=== PATIENT | female | born 1985 | race Caucasian/White ===

== ENCOUNTER 2017-01-11 14:45 | Emergency (ER) | payer SELFPAY ==
[~2017-01-11] VITALS: Ht 162.6 cm; Wt 84.0 kg
[~2017-01-11 14:45] MED LIST: CEPH500C3 PO; MULT-65 PO
[2017-01-11 14:58] VITALS: BP 103/71; PULSE 87; RESP 16; TEMP 98.6; O2SAT 100
[2017-01-11] MEDS ORDERED: IMIT25TA PO (16:15)
[2017-01-11] MEDS ORDERED: DEPRESSION (16:15)
[2017-01-11] MEDS ORDERED: MECLIZINE HCL 25 MG TAB PO ONE (16:30)
[2017-01-11] MEDS ORDERED: ONDANSETRON ODT 4 MG TAB PO ONE (16:30)
[2017-01-11] MEDS ORDERED: ZOFR4TAB PO (16:32)
[2017-01-11] MEDS ORDERED: MECL-62 PO (16:32)
--- NOTE | 2017-01-11 16:35 | PD ---
HPI Chief Complaint: Dizziness Time Seen by Provider: 16:15 Travel History International Travel<30 days: No Contact w/Intl Traveler<30days: No Traveled to known affect area: No History of Present Illness HPI She complains of feeling dizzy and lightheaded. There is a distinct room spinning sedation and is worse with movement or turning her head to either side. Denies fever or head injury. No muscle weakness or sensory loss or confusion or speech slurring. Symptoms severity is moderate. Symptoms wax and wane over 3 days. Symptoms are alleviated when she remains still. PFSH Past Medical History Depression: Yes Diminished Hearing: No Medical other: Yes (GILBERT SYNDROME) ?: Not LMP: on birthcontrol no menses : 3 Para: 2 Dilation and Curettage (D&C): Yes (X1) Past Surgical History Appendectomy: Yes Section: Yes (X2) Social History Alcohol Use: Yes (OCC) Tobacco Use: Yes (1/2 PPD) Substance Use: No Allergies-Medications (Allergen,Severity, Reaction): Coded Allergies: No Known Allergies (Unverified , 01/11/17) Reported Meds & Prescriptions Reported Meds & Active Scripts Active Meclizine (Meclizine HCl) 25 Mg Tab 25 Mg PO TID PRN Zofran (Ondansetron HCl) 4 Mg Tab 4 Mg PO Q6HR PRN Reported Imitrex (Sumatriptan Succinate) 25 Mg Tab 25 Mg PO ONCE PRN If a satisfactory response has not been obtained at 2 hours, a second dose may be administered [Depression] Review of Systems General / Constitutional: No: Fever Eyes: No: Visual changes HENT: Positive: Vertigo, No: Headaches Cardiovascular: No: Chest Pain or Discomfort Respiratory: No: Shortness of Breath Gastrointestinal: Positive: Nausea, No: Abdominal Pain Genitourinary: No: Dysuria Musculoskeletal: No: Pain Skin: No Rash Neurologic: Positive: Dizziness, No: Weakness Psychiatric: No: Depression Endocrine: No: Polydipsia Hematologic/Lymphatic: No: Easy Bruising Physical Exam Narrative GENERAL: Well-nourished, well-developed patient in no apparent distress. SKIN: Warm and dry. HEAD: Atraumatic. Normocephalic. EYES: Pupils equal and round. No scleral icterus. No injection or drainage. ENT: No nasal bleeding or discharge. Mucous membranes pink and moist. Throat and TMs normal NECK: Trachea midline. No JVD. No meningeal signs CARDIOVASCULAR: Regular rate and rhythm. No murmur appreciated. RESPIRATORY: No accessory muscle use. Clear to auscultation. Breath sounds equal bilaterally. GASTROINTESTINAL: Abdomen soft, non-tender, nondistended. Hepatic and splenic margins not palpable. MUSCULOSKELETAL: No obvious deformities. No clubbing. No cyanosis. No edema. NEUROLOGICAL: Awake and alert. No obvious cranial nerve deficits. Motor grossly within normal limits. Normal speech. PSYCHIATRIC: Appropriate mood and affect; insight and judgment normal. Data Data Last Documented VS Vital Signs Date Time Temp Pulse Resp B/P Pulse Ox O2 Delivery O2 Flow Rate FiO2 01/11/17 14:58 98.6 87 16 103/71 100 Orders Meclizine (Antivert) (01/11/17 16:30) Ondansetron Odt (Zofran Odt) (01/11/17 16:30) [facility] Medical Decision Making Medical Screen Exam Complete: Yes Emergency Medical Condition: Yes Medical Record Reviewed: Yes Differential Diagnosis Positional vertigo, labyrinthitis, vasovagal episode Narrative Course I have reviewed the patient's electronic medical record. This patient's vital signs and exam are normal. She is neurologically intact. Presentation seems most consistent with benign positional vertigo No indication for emergent imaging I gave her dose of meclizine and Zofran here with prescriptions for the same. Recommend primary care follow-up but return if she worsens Diagnosis Primary Impression: Positional vertigo Qualified Code: H81.10 - Positional vertigo, unspecified laterality Additional Instructions: The patient was advised to follow up with their physician and return if they worsen. The patient was warned about potential sedation for the medications they will receive on prescription. Med/Other Pt SpecificInfo: Prescription(s) given Scripts Meclizine 25 Mg Tab25 Mg PO TID PRN (VERTIGO) #20 TAB Ref 0 Prov:Flex Waterman MD 01/11/17 Ondansetron (Zofran)4 Mg Tab4 Mg PO Q6HR PRN (NAUSEA OR VOMITING) #15 TAB Ref 0 Prov:Flex Waterman MD 01/11/17 Disposition: DISCHARGE HOME Condition: Stable Flex Waterman MD Jan 11, 2017 16:35
[2017-01-11 16:59] VITALS: BP 112/62
== END 2017-01-11 17:08 | disposition home or self-care (01) ==
LOC: PHED 14:45
DX: H81.10 Benign paroxysmal vertigo, unspecified ear (principal); F17.200 Nicotine dependence, unspecified, uncomplicated; Z86.59 Personal history of other mental and behavioral disorders; Z87.898 Personal history of other specified conditions
CPT/HCPCS: 99283

== ENCOUNTER 2017-03-10 20:47 | Emergency (ER) | payer MEDICAID ==
[~2017-03-10] VITALS: Ht 162.6 cm; Wt 83.0 kg
[~2017-03-10 20:47] MED LIST changes: -CEPH500C3 PO; +DEPRESSION; +IMIT25TA PO; +MECL-62 PO; -MULT-65 PO; +ZOFR4TAB PO
[2017-03-10 20:49] VITALS: BP 117/76; PULSE 73; RESP 18; TEMP 98.5; O2SAT 98
[2017-03-10] MEDS ORDERED: luvox (21:55)
[2017-03-10] MEDS ORDERED: RESP: ALBUTEROL 2.5 MG/IPRATROPIUM 0.5 MG NEB (SCH) INH ONE (22:30)
[2017-03-10 22:42] VITALS: O2SAT 97
--- NOTE | 2017-03-10 23:01 | RADRPT ---
EXAM DATE/TIME: 03/10/2017 22:51 [facility] COMPARISON: CHEST SINGLE AP, August 28, 2015, 20:18. INDICATIONS : Short of breath. MEDICAL HISTORY : None. SURGICAL HISTORY : None. ENCOUNTER: Initial ACUITY: 1 day PAIN SCORE: 3/10 LOCATION: chest FINDINGS: A single view of the chest demonstrates the lungs to be symmetrically aerated without evidence of mas s, infiltrate or effusion. The cardiomediastinal contours are unremarkable. Osseous structures are intact. CONCLUSION: No evidence of acute cardiopulmonary disease. Gerardo Forbes MD on March 10, 2017 at 22:59 Board Certified Radiologist. This report was verified electronically.
[2017-03-10 23:31] LABS: AUTOMATED NEUTROPHIL # 5.7 TH/MM3 (1.8-7.7); BASOPHIL # 0.1 TH/MM3 (0-0.2); BASOPHIL % 0.6 % (0.0-2.0); EOSINOPHIL # 0.2 TH/MM3 (0-0.4); EOSINOPHIL % 2.1 % (0.0-4.0); HEMATOCRIT 40.2 % (35.0-46.0); HEMO FLAGS DIFF FINAL; LYMPH % 27.5 % (9.0-44.0); LYMPHOCYTE # 2.6 TH/MM3 (1.0-4.8); MEAN CELL VOLUME 87.1 FL (80.0-100.0); MEAN CORPUSCULAR HEMOGLOBIN 30.2 PG (27.0-34.0); MEAN CORPUSCULAR HGB CONC 34.7 % (32.0-36.0); MONO % 8.6 % (0.0-8.0); NEUT % 61.2 % (16.0-70.0); PLATELET COUNT 185 TH/MM3 (150-450); RED BLOOD COUNT 4.62 MIL/MM3 (4.00-5.30); WHITE BLOOD COUNT 9.3 TH/MM3 (4.0-11.0)
[2017-03-10 23:43] LABS: APTT (PATIENT) 27.3 SEC (24.3-30.1); PROTHROMBIN TIME - PATIENT 10.8 SEC (9.8-11.6)
--- NOTE | 2017-03-11 | PD ---
HPI Chief Complaint: Respiratory Symptoms Time Seen by Provider: 22:24 Travel History International Travel<30 days: No Contact w/Intl Traveler<30days: No Traveled to known affect area: No History of Present Illness HPI 32-year-old female complains of epigastric substernal chest pain and shortness of breath and body ache. Patient states the symptoms started this evening. Patient states that the chest pain is sharp pain. Patient denies any pain radiation. Patient states that she has mild dry cough. Patient states that she has nausea also with the pain. Patient states the chest wall pain is worse with deep breathing. Patient denies any vomiting or diarrhea. Patient denies any abdominal pain. Patient denies any dysuria or frequency. Patient denies any vaginal discharge or bleeding. PFSH Past Medical History Depression: Yes Diminished Hearing: No ?: Unknown LMP: may 2016 : 3 Para: 2 Dilation and Curettage (D&C): Yes (X1) Past Surgical History Appendectomy: Yes Section: Yes (x2) Social History Alcohol Use: No Tobacco Use: Yes Substance Use: No Allergies-Medications (Allergen,Severity, Reaction): Coded Allergies: No Known Allergies (Unverified , 03/10/17) Reported Meds & Prescriptions Reported Meds & Active Scripts Active Meclizine (Meclizine HCl) 25 Mg Tab 25 Mg PO TID PRN Zofran (Ondansetron HCl) 4 Mg Tab 4 Mg PO Q6HR PRN Reported [luvox] Imitrex (Sumatriptan Succinate) 25 Mg Tab 25 Mg PO ONCE PRN If a satisfactory response has not been obtained at 2 hours, a second dose may be administered [Depression] Review of Systems General / Constitutional: No: Fever Eyes: No: Visual changes HENT: No: Headaches Cardiovascular: Positive: Chest Pain or Discomfort Respiratory: Positive: Cough, Shortness of Breath Gastrointestinal: Positive: Nausea, No: Abdominal Pain Genitourinary: No: Dysuria Musculoskeletal: No: Pain Skin: No Rash Neurologic: No: Weakness Psychiatric: No: Depression Endocrine: No: Polydipsia Hematologic/Lymphatic: No: Easy Bruising Physical Exam Narrative GENERAL: Well-nourished, well-developed patient. SKIN: Focused skin assessment warm/dry. HEAD: Normocephalic. EYES: No scleral icterus. No injection or drainage. NECK: Supple, trachea midline. No JVD or lymphadenopathy. CARDIOVASCULAR: Regular rate and rhythm without murmurs, gallops, or rubs. RESPIRATORY: Breath sounds equal bilaterally. No accessory muscle use. Patient has mild expiratory wheezes bilaterally. No rhonchi. GASTROINTESTINAL: Abdomen soft, nondistended. Patient has mild tenderness on palpation epigastric area. No rebound tenderness. No mass. MUSCULOSKELETAL: No cyanosis, or edema. BACK: Nontender without obvious deformity. No CVA tenderness. Neurologic exam normal. Data Data Last Documented VS Vital Signs Date Time Temp Pulse Resp B/P Pulse Ox O2 Delivery O2 Flow Rate FiO2 03/10/17 22:42 97 03/10/17 22:41 Room Air 03/10/17 20:49 98.5 73 18 117/76 Orders Complete Blood Count With Diff (03/10/17 22:30) Comprehensive Metabolic Panel (03/10/17 22:30) Act Partial Throm Time (Ptt) (03/10/17 22:30) Prothrombin Time / Inr (Pt) (03/10/17 22:30) Ckmb (Isoenzyme) Profile (03/10/17 22:30) Troponin I (03/10/17 22:30) Urinalysis - C+S If Indicated (03/10/17 22:30) Influenzae A/B Antigen (03/10/17 22:30) Iv Access Insert/Monitor (03/10/17 22:30) Ecg Monitoring (03/10/17 22:30) Oximetry (03/10/17 22:30) Oxygen Administration (03/10/17 22:30) Chest, Single Ap (03/10/17 22:30) Albuterol-Ipratropium Neb (Duoneb Neb) (03/10/17 22:30) Labs Laboratory Tests Test 03/10/17 03/10/17 22:15 23:53 White Blood Count 9.3 TH/MM3 Red Blood Count 4.62 MIL/MM3 Hemoglobin 14.0 GM/DL Hematocrit 40.2 % Mean Corpuscular Volume 87.1 FL Mean Corpuscular Hemoglobin 30.2 PG Mean Corpuscular Hemoglobin 34.7 % Concent Red Cell Distribution Width 13.0 % Platelet Count 185 TH/MM3 Mean Platelet Volume 11.1 FL Neutrophils (%) (Auto) 61.2 % Lymphocytes (%) (Auto) 27.5 % Monocytes (%) (Auto) 8.6 % Eosinophils (%) (Auto) 2.1 % Basophils (%) (Auto) 0.6 % Neutrophils # (Auto) 5.7 TH/MM3 Lymphocytes # (Auto) 2.6 TH/MM3 Monocytes # (Auto) 0.8 TH/MM3 Eosinophils # (Auto) 0.2 TH/MM3 Basophils # (Auto) 0.1 TH/MM3 CBC Comment DIFF FINAL Differential Comment Prothrombin Time 10.8 SEC Prothromb Time International 1.0 RATIO Ratio Activated Partial 27.3 SEC Thromboplast Time Sodium Level 140 MEQ/L Potassium Level 3.7 MEQ/L Chloride Level 106 MEQ/L Carbon Dioxide Level 25.1 MEQ/L Anion Gap 9 MEQ/L Blood Urea Nitrogen 15 MG/DL Creatinine 0.89 MG/DL Estimat Glomerular Filtration 74 ML/MIN Rate Random Glucose 78 MG/DL Calcium Level 9.0 MG/DL Total Bilirubin 0.5 MG/DL Aspartate Amino Transf 15 U/L (AST/SGOT) Alanine Aminotransferase 22 U/L (ALT/SGPT) Alkaline Phosphatase 72 U/L Total Creatine Kinase 95 U/L Troponin I LESS THAN 0.02 NG/ML Total Protein 7.7 GM/DL Albumin 4.2 GM/DL Urine Color COLORLESS Urine Turbidity CLEAR Urine pH 6.5 Urine Specific [place] 1.004 Urine Protein NEG mg/dL Urine Glucose (UA) NEG mg/dL Urine Ketones NEG mg/dL Urine Occult Blood NEG Urine Nitrite NEG Urine Bilirubin NEG Urine Urobilinogen LESS THAN 2.0 MG/DL Urine Leukocyte Esterase NEG Urine RBC LESS THAN 1 /hpf Urine WBC LESS THAN 1 /hpf Urine Squamous Epithelial 2 /hpf Cells Urine Renal Epithelial Cells <1 /hpf Microscopic Urinalysis Comment CULT NOT INDICATED MDM Medical Decision Making Medical Screen Exam Complete: Yes Emergency Medical Condition: Yes Interpretation(s) Last Impressions Chest X-Ray 03/10/170 Signed Impressions: Service Date/Time: Friday, March 10, 2017 22:51 - CONCLUSION: No evidence of acute cardiopulmonary disease. Gerardo Forbes MD 12 AM. CBC within normal limit. CMP within normal limit. Cardiac enzymes are normal. UA is negative. Influenza AB antigen negative Differential Diagnosis Differential diagnosis including URI, bronchitis, pneumonia, angina, TN, PE, pneumothorax, gastritis, PUD, pancreatitis, colitis, UTI, pyelonephritis. Narrative Course 32-year-old female with chest pain or shortness of breath and substernal and epigastric pain. Patient also complained body ache and nausea. Albuterol with Atrovent unit dose treatment 2. Solu-Medrol 125 mg IV. Protonix 40 mg IV. Diagnosis Primary Impression: Atypical chest pain Additional Impressions: Bronchitis Reactive airway disease Qualified Code: J45.20 - Reactive airway disease, mild intermittent, uncomplicated Patient Instructions: General Instructions Additional Instructions: Take medications as directed. Use inhaler as directed. Follow-up with personal physician. Return if worse. Med/Other Pt SpecificInfo: Prescription(s) given Scripts Ranitidine (Zantac)300 Mg [id number] Mg PO DAILY #10 TAB Ref 0 Prov:Ady Bowers MD 03/11/17 Prednisone 20 Mg Tab20 Mg PO BID #10 TAB Prov:Ady Bowers MD 03/11/17 Azithromycin (Zithromax Z-Zander)250 Mg [id number] Mg PO DIRECTED #1 DSPK 500 MG (2 tabs) day 1, then 1 tab days 2-5. Prov:Ady Bowers MD 03/11/17 Disposition: 01 DISCHARGE HOME Condition: Stable Ady Bowers MD Mar 11, 2017 00:00
[2017-03-11 00:04] LABS: ANION GAP 9 MEQ/L (5-15); AST (GOT) 15 U/L (15-37); BICARBONATE 25.1 MEQ/L (21.0-32.0); BLOOD UREA NITROGEN 15 MG/DL (7-18); CHLORIDE 106 MEQ/L (98-107); GLOMERULAR FILTRATION RATE 74 ML/MIN (>89); POTASSIUM 3.7 MEQ/L (3.5-5.1); SODIUM (NA) 140 MEQ/L (136-145)
[2017-03-11 00:09] LABS: ALKALINE PHOSPHATASE 72 U/L (45-117); ALT (GPT) 22 U/L (10-53); TOTAL BILIRUBIN ADULT 0.5 MG/DL (0.2-1.0)
[2017-03-11 00:09] LABS: BLOOD, URINE NEG (NEG); GLUCOSE,URINE NEG (NEG); KETONE, URINE NEG (NEG); NITRITE,URINE NEG (NEG); PH, URINE 6.5 (5.0-8.5); RENAL EPITHELIAL CELLS <1 /hpf; SQUAMOUS EPITHELIAL CELL URINE 2 /hpf (0-5); URINE COLOR COLORLESS (YELLW/STRAW)
[2017-03-11 00:10] LABS: CREATINE KINASE 95 U/L (26-192)
[2017-03-11 00:10] LABS: COMMENT (UR) CULT NOT INDICATED; CULTURE IF INDICATED CULT NOT INDICATED
[2017-03-11] MEDS ORDERED: ZANT300T PO (01:29)
[2017-03-11] MEDS ORDERED: PRED20 PO (01:29)
[2017-03-11] MEDS ORDERED: ZITHTAB PO (01:29)
[2017-03-11] MEDS ORDERED: PANTOPRAZOLE SODIUM 40 MG VIAL IV PUSH ONE (01:30)
[2017-03-11] MEDS ORDERED: methylPREDNISolone SOD SUCC 125 MG/2 ML VIAL IV PUSH ONE (01:30)
[2017-03-11 02:00] VITALS: BP 120/62; PULSE 86; RESP 22; O2SAT 98
--- NOTE | 2017-03-12 07:03 | EKG ---
Date Performed: 03/10/2017 Time Performed: 22:23:34 PTAGE: 32 years EKG: SINUS BRADYCARDIA BORDERLINE ECG Compared to PREVIOUS TRACING , the sinus rate has slowed. PREVIOUS TRACIN08/28/2015 16.27 DOCTOR: Ronn Boss Interpretating Date/Time 03/12/2017 07:01:59
== END 2017-03-11 02:13 | disposition home or self-care (01) ==
LOC: NEPD 20:47
DX: R07.89 Other chest pain (principal); J45.20 Mild intermittent asthma, uncomplicated; Z72.0 Tobacco use
CPT/HCPCS: 71010; 80053; 81001; 82550; 84484; 85025; 85610; 85730; 87804; 93005; 94664; 96374; 96375; 99285; C9113; J2930

== ENCOUNTER 2018-01-10 22:25 | Emergency (ER) | payer MEDICAID, OTHER ==
[~2018-01-10] VITALS: Ht 165.1 cm; Wt 83.0 kg
[~2018-01-10 22:25] MED LIST changes: +PRED20 PO; +ZANT300T PO; +ZITHTAB PO; +luvox
[2018-01-10 22:29] VITALS: BP 124/79; PULSE 72; RESP 16; TEMP 97.9; O2SAT 98
[2018-01-10 22:46] VITALS: BP 118/67; PULSE 63; RESP 16; TEMP 98; O2SAT 98
[2018-01-10] MEDS ORDERED: ONDANSETRON HCL 4 MG/2 ML VIAL IV ONE (23:15)
[2018-01-10] MEDS ORDERED: SODIUM CHLOR 0.9% 1000 ML INJ 1,000 ML IV ONE (23:15)
[2018-01-10 23:24] VITALS: RESP 20
--- NOTE | 2018-01-10 23:35 | PD ---
HPI Chief Complaint: Abdominal Pain Time Seen by Provider: 23:07 Travel History International Travel<30 days: No Contact w/Intl Traveler<30days: No Traveled to known affect area: No History of Present Illness HPI The patient is a 33 year old female who presents to the [facility] emergency department with a history of abdominal pain in the right upper abdomen that radiates into her back. The pain is coming and going. It is sharp in character. She last ate at 7 PM. She had Tacos for dinner. She denies any indigestion or food intolerances. She has had urinary frequency for the last week. She has had N/V 3-4 times since the onset. She denies having any dysuria or urinary urgency. She reports that she is currently trying to get . She recently had her Nexplanon removed. On review of systems otherwise, she denies having any recent fevers, cough or congestion, neck pain, chest pain, shortness of breath, diarrhea, or neurologic symptoms. Her last bowel movement was earlier today. She denies having any blood in her stool or black or tarry stools LMP: 1 and 1/2 weeks ago. [facility] Past Medical History Narrative Medical The patient's past medical history is significant for Gilbert's, depression. Depression: Yes Diminished Hearing: No Immunizations Current: Yes Tetanus Vaccination: Unknown Influenza Vaccination: No ?: Not LMP: 01/01/18 : 3 Para: 2 Dilation and Curettage (D&C): Yes (X1) Past Surgical History Narrative Surgical The patient's past surgical history is significant for x2, d and c, appendectomy. Appendectomy: Yes Section: Yes (x2) Social History Alcohol Use: No Tobacco Use: No (quit smoking 2 months ago.) Substance Use: No Allergies-Medications (Allergen,Severity, Reaction): Coded Allergies: No Known Allergies (Unverified Adverse Reaction, Unknown, 01/10/18) Reported Meds & Prescriptions Reported Meds & Active Scripts Active Bentyl (Dicyclomine HCl) 10 Mg Cap 10 Mg PO TID PRN Review of Systems Except as stated in HPI: all other systems reviewed are Neg General / Constitutional: No: Fever Eyes: No: Visual changes HENT: No: Headaches Cardiovascular: No: Chest Pain or Discomfort Respiratory: No: Shortness of Breath Gastrointestinal: Positive: Nausea, Vomiting, Abdominal Pain, No: Diarrhea Genitourinary: No: Dysuria Musculoskeletal: No: Pain Skin: No Rash Neurologic: No: Weakness Psychiatric: No: Depression Endocrine: No: Polydipsia Hematologic/Lymphatic: No: Easy Bruising Physical Exam Narrative General: The patient is a well-developed well-nourished female in no acute distress. Head and Neck exam: Head is normocephalic atraumatic. Eyes: EOMI, pupils are equal round and reactive to light. Nose: Midline septum with pink mucous membranes Mouth: Dentition unremarkable. Moist mucus membranes. Posterior oropharynx is not erythematous. No tonsillar hypertrophy. Uvula midline. Airway patent. Neck: No palpable lymphadenopathy. No nuchal rigidity. No thyromegaly. Cardiovascular: Regular rate and rhythm without murmurs, gallops, or rubs. Lungs: Clear to auscultation bilaterally. No wheezes, rhonchi, or rales. Abdomen: Soft, with reported tenderness on palpation along bilateral lower quadrants of the abdomen and the right upper quadrant of the abdomen. Normal bowel sounds are audible. No guarding, rebound, or rigidity. Negative Stone's sign. Extremities: No clubbing, cyanosis, or edema. 2+ pulses in all 4 extremities. No calf tenderness on palpation. Back: No spinous process tenderness to palpation. No costovertebral angle tenderness to palpation. Neurologic Exam: Grossly nonfocal. Skin Exam: No rash noted. Intact skin that is warm and dry. Data Data Last Documented VS Vital Signs Date Time Temp Pulse Resp B/P (MAP) Pulse Ox O2 Delivery O2 Flow Rate FiO2 01/11/18 02:11 01/11/18 00:57 20 01/10/18 22:46 98.0 63 98 Room Air Orders Orders Complete Blood Count With Diff (01/10/18 23:10) Comprehensive Metabolic Panel (01/10/18 23:10) C-Reactive Protein (Crp) (01/10/18 23:10) Lipase (01/10/18 23:10) Urinalysis - C+S If Indicated (01/10/18 23:10) Iv Access Insert/Monitor (01/10/18 23:10) Ecg Monitoring (01/10/18 23:10) Oximetry (01/10/18 23:10) Ed Urine Pregnancytest Poc (01/10/18 23:10) Sodium Chlor 0.9% 1000 Ml Inj (Ns 1000 M (01/10/18 23:15) Ondansetron Inj (Zofran Inj) (01/10/18 23:15) Ct Abd/Pel W Iv Contrast(Rout) (01/11/18 00:07) Ketorolac Inj (Toradol Inj) (01/11/18 00:15) Iohexol 350 Inj (Omnipaque 350 Inj) (01/11/18 00:33) Labs Laboratory Tests Test 01/10/18 23:20 01/10/18 23:30 White Blood Count 8.7 TH/MM3 Red Blood Count 4.95 MIL/MM3 Hemoglobin 14.8 GM/DL Hematocrit 42.4 % Mean Corpuscular Volume 85.6 FL Mean Corpuscular Hemoglobin 30.0 PG Mean Corpuscular Hemoglobin Concent 35.0 % Red Cell Distribution Width 12.9 % Platelet Count 188 TH/MM3 Mean Platelet Volume 10.5 FL Neutrophils (%) (Auto) 48.1 % Lymphocytes (%) (Auto) 42.2 % Monocytes (%) (Auto) 6.8 % Eosinophils (%) (Auto) 2.1 % Basophils (%) (Auto) 0.8 % Neutrophils # (Auto) 4.2 TH/MM3 Lymphocytes # (Auto) 3.7 TH/MM3 Monocytes # (Auto) 0.6 TH/MM3 Eosinophils # (Auto) 0.2 TH/MM3 Basophils # (Auto) 0.1 TH/MM3 CBC Comment DIFF FINAL Differential Comment Blood Urea Nitrogen 14 MG/DL Creatinine 0.91 MG/DL Random Glucose 94 MG/DL Total Protein 7.1 GM/DL Albumin 3.7 GM/DL Calcium Level 9.3 MG/DL Alkaline Phosphatase 74 U/L Aspartate Amino Transf (AST/SGOT) 19 U/L Alanine Aminotransferase (ALT/SGPT) 38 U/L Total Bilirubin 0.4 MG/DL Sodium Level 140 MEQ/L Potassium Level 3.6 MEQ/L Chloride Level 107 MEQ/L Carbon Dioxide Level 24.6 MEQ/L Anion Gap 8 MEQ/L Estimat Glomerular Filtration Rate 71 ML/MIN C-Reactive Protein LESS THAN 0.29 MG/DL Lipase 155 U/L Urine Color LIGHT-YELLOW Urine Turbidity HAZY Urine pH 6.5 Urine Specific [place] 1.007 Urine Protein NEG mg/dL Urine Glucose (UA) NEG mg/dL Urine Ketones NEG mg/dL Urine Occult Blood NEG Urine Nitrite NEG Urine Bilirubin NEG Urine Urobilinogen LESS THAN 2.0 MG/DL Urine Leukocyte Esterase NEG Urine RBC 1 /hpf Urine WBC 1 /hpf Urine Squamous Epithelial Cells 7 /hpf Urine Amorphous Sediment RARE Urine Bacteria RARE /hpf Urine Mucus FEW /lpf Microscopic Urinalysis Comment CULT NOT INDICATED MDM Medical Decision Making Medical Screen Exam Complete: Yes Emergency Medical Condition: Yes Medical Record Reviewed: Yes Differential Diagnosis Biliary colic, versus acute cholecystitis, versus colitis, versus pancreatitis, versus viral syndrome, versus gastroparesis Narrative Course During the course of the patient's emergency department visit, the patient's history, examination, and differential diagnosis were reviewed with the patient. The patient was placed on a radiographer cardiac catheterization with oximetry and frequent blood pressure monitoring. The patient had IV access obtained and blood work sent for analysis. The patient was initially provided normal saline 1 L IV fluid bolus, Zofran 4 mg IV, Toradol 15 mg IV The patient's laboratory studies were reviewed and remarkable for A CBC that is within normal limits, CMP is remarkable for GFR of 71, C-reactive protein less than 0.29, lipase 155, urinalysis reveals hazy urine otherwise unremarkable Radiology studies were reviewed and remarkable for a CT scan of the abdomen and pelvis that shows no acute disease The patient's pain was improving. The patient will be discharged home with a prescription for Bentyl. The patient is resting comfortably and feels better, is alert and in no distress. The patient's results and examination findings were discussed with the patient. The repeat examination is unremarkable and benign. The history, exam, diagnostic testing, and current condition do not suggest any significant pathology to warrant further testing, continued ED treatment, admission, or surgical evaluation at this point. The vital signs have been stable. The patient does not have uncontrollable pain, intractable vomiting, or other significant symptoms. The patient's condition is stable and appropriate for discharge. The patient will pursue further outpatient evaluation with a primary care physician or other designated or consulting physician as indicated in the discharge instructions. The patient expressed understanding and was agreeable with this plan. Diagnosis Primary Impression: Abdominal pain Qualified Codes: R10.84 - Generalized abdominal pain Referrals: Primary Care Physician 2 days Patient Instructions: Abdominal Pain (ED), General Instructions Med/Other Pt SpecificInfo: Prescription(s) given Scripts Dicyclomine (Bentyl) 10 Mg Cap 10 MG PO TID Y for PAIN GREATER THAN 5, #10 CAP 0 Refills Prov: Jeannie Lira MD 01/11/18 Disposition: 01 DISCHARGE HOME Condition: Stable Jeannie Lira MD Jan 10, 2018 23:35
[2018-01-10 23:42] LABS: AUTOMATED NEUTROPHIL # 4.2 TH/MM3 (1.8-7.7); BASOPHIL # 0.1 TH/MM3 (0-0.2); BASOPHIL % 0.8 % (0.0-2.0); EOSINOPHIL # 0.2 TH/MM3 (0-0.4); EOSINOPHIL % 2.1 % (0.0-4.0); HEMATOCRIT 42.4 % (35.0-46.0); HEMOGLOBIN 14.8 GM/DL (11.6-15.3); LYMPH % 42.2 % (9.0-44.0); LYMPHOCYTE # 3.7 TH/MM3 (1.0-4.8); MEAN CELL VOLUME 85.6 FL (80.0-100.0); MEAN PLATELET VOLUME 10.5 FL (7.0-11.0); MONO % 6.8 % (0.0-8.0); MONOCYTE # 0.6 TH/MM3 (0-0.9); NEUT % 48.1 % (16.0-70.0); PLATELET COUNT 188 TH/MM3 (150-450); RED BLOOD COUNT 4.95 MIL/MM3 (4.00-5.30); RED CELL DISTRIBUTION WIDTH 12.9 % (11.6-17.2); WHITE BLOOD COUNT 8.7 TH/MM3 (4.0-11.0)
[2018-01-10 23:58] LABS: AMORPHOUS SEDIMENT, URINE RARE; BACTERIA, URINE RARE /hpf; BILIRUBIN, URINE NEG (NEG); BLOOD, URINE NEG (NEG); GLUCOSE,URINE NEG (NEG); KETONE, URINE NEG (NEG); MUCUS URINE FEW /lpf (OCC); NITRITE,URINE NEG (NEG); PH, URINE 6.5 (5.0-8.5); SQUAMOUS EPITHELIAL CELL URINE 7 /hpf (0-5); URINE COLOR LIGHT-YELLOW (YELLW/STRAW); URINE LEUKOCYTE ESTERASE NEG (NEG)
[2018-01-11 00:02] LABS: ALBUMIN 3.7 GM/DL (3.4-5.0); AST (GOT) 19 U/L (15-37); BICARBONATE 24.6 MEQ/L (21.0-32.0); BLOOD UREA NITROGEN 14 MG/DL (7-18); CALCIUM 9.3 MG/DL (8.5-10.1); CHLORIDE 107 MEQ/L (98-107); CREATININE 0.91 MG/DL (0.50-1.00); GLOMERULAR FILTRATION RATE 71 ML/MIN (>89); GLUCOSE,RANDOM 94 MG/DL (74-106); SODIUM (NA) 140 MEQ/L (136-145)
[2018-01-11 00:03] LABS: C-REACTIVE PROTEIN LESS THAN 0.29 MG/DL (0.00-0.30)
[2018-01-11 00:06] LABS: ALKALINE PHOSPHATASE 74 U/L (45-117); ALT (GPT) 38 U/L (10-53); TOTAL BILIRUBIN ADULT 0.4 MG/DL (0.2-1.0); TOTAL PROTEIN 7.1 GM/DL (6.4-8.2)
[2018-01-11] MEDS ORDERED: KETOROLAC TROMETHAMINE 30 MG/ML (IVP) VIAL IV PUSH ONE (00:15)
[2018-01-11] MEDS ORDERED: IOHEXOL 350 MG/ML 10 ML VIAL (for RAD DIAG) IVCONTRAST ONE (00:33)
--- NOTE | 2018-01-11 00:52 | RADRPT ---
EXAM DATE/TIME: 01/11/2018 00:28 [facility] COMPARISON: No previous studies available for comparison. INDICATIONS : Abdomen pain. IV CONTRAST: 96 cc Omnipaque 350 (iohexol) IV ORAL CONTRAST: No oral contrast ingested. RADIATION DOSE: 12.82 CTDIvol (mGy) MEDICAL HISTORY : None SURGICAL HISTORY : Appendectomy. D & C. ENCOUNTER: Initial ACUITY: 1 day PAIN SCALE: 5/10 LOCATION: Bilateral abdomen TECHNIQUE: Volumetric scanning of the abdomen and pelvis was performed. Using automated exposure control and ad justment of the mA and/or kV according to patient size, radiation dose was kept as low as reasonably achievable to obtain optimal diagnostic quality images. DICOM format image data is available electro nically for review and comparison. FINDINGS: Liver, gallbladder, kidneys, spleen, pancreas, adrenal glands, stomach unremarkable. Urinary bladder, uterus and ovaries are unremarkable. Small bowel, large bowel unremarkable. Patient is status post a ppendectomy. No adenopathy or aneurysm. Lung bases are clear. Osseous structures are intact. CONCLUSION: No acute disease. Manny Wade MD on January 11, 2018 at 0:49 Board Certified Radiologist. This report was verified electronically.
[2018-01-11 00:57] VITALS: RESP 20
[2018-01-11] MEDS ORDERED: DICY10 PO (01:39)
== END 2018-01-11 02:32 | disposition home or self-care (01) ==
LOC: NEPC 22:25
DX: R10.84 Generalized abdominal pain (principal); Z87.891 Personal history of nicotine dependence
CPT/HCPCS: 74177; 80053; 81001; 83690; 84703; 85025; 86140; 96361; 96374; 96375; 99284; J1885; J2405; J7030; Q9967

== ENCOUNTER 2018-02-17 14:00 | Emergency (ER) | payer OTHER ==
[~2018-02-17] VITALS: Ht 167.6 cm; Wt 81.0 kg
[~2018-02-17 14:00] MED LIST changes: -DEPRESSION; +DICY10 PO; -IMIT25TA PO; -MECL-62 PO; -PRED20 PO; -ZANT300T PO; -ZITHTAB PO; -ZOFR4TAB PO; -luvox
[2018-02-17 14:02] VITALS: BP 115/57; PULSE 71; RESP 15; TEMP 97.7; O2SAT 99
[2018-02-17] MEDS ORDERED: SE-NCHW CHEW (14:41)
--- NOTE | 2018-02-17 15:01 | PD ---
HPI Chief Complaint: Related Problem Time Seen by Provider: 14:45 Travel History International Travel<30 days: No Contact w/Intl Traveler<30days: No Traveled to known affect area: No History of Present Illness HPI 33-year-old female with recent positive home test 3 days ago , presents emergency department with increasing abdominal cramping without vaginal bleeding or spotting. Patient states the cramping is worsened over the past 24 hours. She states it is bilateral but more to the right than the left. She denies nausea, vomiting, fever, or changes in her bowels. Patient denies urinary symptoms. This is the patient's second . Last menstrual period was end of November. Pain is currently rated 8 out of 10. She has no known drug allergies. PFSH Past Medical History Depression: Yes Diminished Hearing: No Immunizations Current: Yes Tetanus Vaccination: < 5 Years ?: LMP: 12/23/17 : 4 Para: 2 Miscarriage: 1 Dilation and Curettage (D&C): Yes (X1) Past Surgical History Appendectomy: Yes Section: Yes (x2) Social History Alcohol Use: No Tobacco Use: No Substance Use: No Allergies-Medications (Allergen,Severity, Reaction): Coded Allergies: No Known Allergies (Unverified Adverse Reaction, Unknown, 02/17/18) Reported Meds & Prescriptions Reported Meds & Active Scripts Active Reported Se-Kameron 19 29-1 mg Chew ( Vit W/ Ferrous Fumara Chew) 1 Chew 1 Tab CHEW DAILY Review of Systems Except as stated in HPI: all other systems reviewed are Neg General / Constitutional: No: Fever Eyes: No: Visual changes HENT: No: Headaches Cardiovascular: No: Chest Pain or Discomfort Respiratory: No: Shortness of Breath Gastrointestinal: No: Abdominal Pain Genitourinary: Positive: Pelvic Pain, Other (Recent positive test), No: Dysuria, Discharge, Vaginal Bleeding Musculoskeletal: No: Pain Skin: No Rash Neurologic: No: Weakness Psychiatric: No: Depression Endocrine: No: Polydipsia Hematologic/Lymphatic: No: Easy Bruising Physical Exam Narrative GENERAL: Patient appears in mild to moderate distress. SKIN: Warm and dry. Normal color. Normal turgor HEAD: Atraumatic. Normocephalic. EYES: Pupils equal and round. No scleral icterus. No injection or drainage. ENT: No nasal bleeding or discharge. Mucous membranes pink and moist. NECK: Trachea midline. No JVD. CARDIOVASCULAR: Regular rate and rhythm. RESPIRATORY: No accessory muscle use. Clear to auscultation. Breath sounds equal bilaterally. MUSCULOSKELETAL: Extremities without clubbing, cyanosis, or edema. No obvious deformities. NEUROLOGICAL: Awake and alert. No obvious cranial nerve deficits. Motor grossly within normal limits. Five out of 5 muscle strength in the arms and legs. Normal speech. PSYCHIATRIC: Appropriate mood and affect; insight and judgment normal. Data Data Last Documented VS Vital Signs Date Time Temp Pulse Resp B/P (MAP) Pulse Ox O2 Delivery O2 Flow Rate FiO2 02/17/18 14:02 97.7 71 15 115/57 (76) 99 Orders Orders Urinalysis - C+S If Indicated (02/17/18 14:41) Ed Urine Pregnancytest Poc (02/17/18 14:41) Beta Hcg (Quant/Titer) (02/17/18 14:46) Us Pelvis (Ques Pr/Ect)W Trans (02/17/18 ) Labs Laboratory Tests Test 02/17/18 15:00 Urine Color YELLOW Urine Turbidity HAZY Urine pH 5.5 Urine Specific [place] 1.015 Urine Protein NEG mg/dL Urine Glucose (UA) NEG mg/dL Urine Ketones NEG mg/dL Urine Occult Blood NEG Urine Nitrite NEG Urine Bilirubin NEG Urine Urobilinogen LESS THAN 2.0 MG/DL Urine Leukocyte Esterase NEG Urine WBC 1 /hpf Urine Squamous Epithelial Cells 9 /hpf Microscopic Urinalysis Comment CULT NOT INDICATED Human Chorionic Gonadotropin, Quant 4941 MIU/ML MDM Medical Decision Making Medical Screen Exam Complete: Yes Emergency Medical Condition: Yes Differential Diagnosis Early . Ectopic . Abdominal pain. Threatened . Narrative Course Patient is medically stable at time of exam. Urinalysis is ordered as well as urine test Serum hCG is ordered. Pelvic ultrasound to rule out ectopic is ordered. Serum hCG is 4941. Urinalysis is unremarkable. Ultrasound shows: 1. Single intrauterine gestational sac with absent pole. Differential considerations include early versus demise. Followup examination is recommended. 2. Trace free fluid. Recommend patient follow-up in 2 days with either an OB or return to ED for repeat hCG. Patient should follow-up sooner if worsening symptoms develop. Diagnosis Primary Impression: Threatened miscarriage in early Referrals: [facility] Patient Instructions: General Instructions, Threatened Miscarriage (ED) Additional Instructions: Serum hCG is 4941. Urinalysis is unremarkable. Ultrasound shows: 1. Single intrauterine gestational sac with absent pole. Differential considerations include early versus demise. Followup examination is recommended. 2. Trace free fluid. Recommend patient follow-up in 2 days with either an OB or return to ED for repeat hCG. Patient should follow-up sooner if worsening symptoms develop. Disposition: 01 DISCHARGE HOME Condition: Stable Yunior Jones Feb 17, 2018 15:01
[2018-02-17 15:42] LABS: BILIRUBIN, URINE NEG (NEG); BLOOD, URINE NEG (NEG); GLUCOSE,URINE NEG (NEG); KETONE, URINE NEG (NEG); NITRITE,URINE NEG (NEG); PH, URINE 5.5 (5.0-8.5); SQUAMOUS EPITHELIAL CELL URINE 9 /hpf (0-5); URINE COLOR YELLOW (YELLW/STRAW); URINE LEUKOCYTE ESTERASE NEG (NEG)
--- NOTE | 2018-02-17 17:02 | RADRPT ---
EXAM DATE/TIME: 02/17/2018 15:17 [place] COMPARISON: No previous studies available for comparison. INDICATIONS : Cramping with . LAB(S): Beta-hC,941 MEDICAL HISTORY : . SURGICAL HISTORY : Appendectomy. section. Dilation and curettage. ENCOUNTER: Initial ACUITY: 1 day PAIN SCORE: 5/10 LOCATION: Bilateral pelvis MEASUREMENTS: UTERUS: 8.3 x 3.7 x 5.3 cm ENDOMETRIAL STRIPE: 8 mm RIGHT OVARY: 4.0 x 2.4 x 2.2 cm LEFT OVARY: 3.4 x 2.0 x 2.1 cm FREE FLUID: Yes Trace in right adnexa. CROWN RUMP LENGTH: None = WKS DAYS FHR: None BPM FINDINGS: UTERUS: There is an endometrial gestational sac with small yolk sac but no pole. RIGHT OVARY: Ovary contains no mass or significant cystic lesion. LEFT OVARY: Ovary contains no mass or significant cystic lesion. MISCELLANEOUS: Trace pelvic free fluid. CONCLUSION: 1. Single intrauterine gestational sac with absent pole. Differential considerations include ea rly versus demise. Followup examination is recommended. 2. Trace free fluid. Jorge Castillo MD on February 17, 2018 at 16:55 Board Certified Radiologist. This report was verified electronically.
== END 2018-02-17 17:31 | disposition home or self-care (01) ==
LOC: NEPD 14:00
DX: O20.0 Threatened abortion (principal); Z3A.00 Weeks of gestation of pregnancy not specified
CPT/HCPCS: 76700; 76817; 81001; 84702; 84703; 99284